=== PATIENT | male | born 1970 | race African-American/Black ===

== ENCOUNTER 2018-10-26 06:51 | Inpatient (IN) | payer BC ==
[~2018-10-26] VITALS: Ht 182.9 cm; Wt 86.2 kg
[2018-10-26] MEDS ORDERED: NITROGLYCERIN SUBLINGUAL 0.4 MG BOTTLE OF 25. SL ONE (07:07)
[2018-10-26] MEDS: NITROGLYCERIN SUBLINGUAL 0.4 MG BOTTLE OF 25. SL PRN ×3 (07:09→07:26)
--- NOTE | 2018-10-26 07:16 | PHYS DOC ---
Past Medical History Past Medical History: CAD, High Cholesterol, Hypertension Smoking: Cigarettes, Less than 1pk/day Adult General Chief Complaint Chief Complaint: chest pain HPI HPI Patient is a 48 year old 48 who brought in by EMS because of chest pain. Patien t states he just got to the work and getting started to clock in and felt pain in the substernal area as a belching feeling with diaphoresis and nausea. Patient denies dizziness, palpitation, shortness of breath, focal neuro deficit, fever and chills, urinary symptom. Patient rated his pain 7/10 and denies any change of pain since it was started. Patient treated with 324 mg of aspirin by EMS without improvement of the pain. Patient had history of stent placement 2 in 2003 but states this pain was different at that time. Patient seen by his fishing vessel operator about 5 months ago. Review of Systems Review of Systems Constitutional: Denies fever or chills [] Eyes: Denies change in visual acuity, redness, or eye pain [] HENT: Denies nasal congestion or sore throat [] Respiratory: Denies cough or shortness of breath [] Cardiovascular: No additional information not addressed in HPI [] GI: Denies abdominal pain, vomiting, bloody stools or diarrhea, reports nausea and [] : Denies dysuria or hematuria [] Musculoskeletal: Denies back pain or joint pain [] Integument: Denies rash or skin lesions [] Neurologic: Denies headache, focal weakness or sensory changes [] Endocrine: Denies polyuria or polydipsia [] All other systems were reviewed and found to be within normal limits, except as documented in this note. Current Medications Current Medications Current Medications Medications (Trade) Dose Ordered Sig/Stefanie Start Time Stop Time Status Last Admin Dose Admin Ketorolac Tromethamine (Toradol 30mg Vial) 30 mg 1X ONCE 10/26/18 08:45 10/26/18 08:46 10/26/18 08:31 30 MG Metoclopramide HCl (Reglan Vial) 10 mg 1X ONCE 10/26/18 08:45 10/26/18 08:46 10/26/18 08:30 10 MG Morphine Sulfate (Morphine Sulfate) 4 mg 1X ONCE 10/26/18 08:00 10/26/18 08:01 DC 10/26/18 07:41 4 MG Multi-Ingredient Mouthwash/Gargle (Gi Cocktail) 20 ml 1X ONCE 10/26/18 08:15 10/26/18 08:16 DC 10/26/18 08:05 20 ML Nitroglycerin (Nitrostat) 0.4 mg STK-MED ONCE 10/26/18 07:07 10/26/18 07:08 DC Ondansetron HCl (Zofran) 4 mg 1X ONCE 10/26/18 07:30 10/26/18 07:31 DC 10/26/18 07:27 4 MG Allergies Allergies Allergies Coded Allergies Type Severity Reaction Last Updated Verified No Known Drug Allergies 10/26/18 No Physical Exam Physical Exam Constitutional: Well developed, well nourished, mild distress, non-toxic ap pearance. [] HENT: Normocephalic, atraumatic, oropharynx moist. Eyes: PERRLA, EOMI, conjunctiva normal, no discharge. [] Neck: Normal range of motion, no tenderness, supple, no stridor. [] Cardiovascular: Bradycardia, no murmur [] Lungs & Thorax: Bilateral breath sounds clear to auscultation [] Abdomen: Bowel sounds normal, soft, no tenderness, no masses, no pulsatile masses. [] Skin: Warm, dry, no erythema, no rash. [] Back: No tenderness, no CVA tenderness. [] Extremities: No tenderness, no cyanosis, no clubbing, ROM intact, no edema. [] Neurologic: Alert and oriented X 3, normal motor function, normal sensory function, no focal deficits noted. [] Psychologic: Affect normal, judgement normal, mood normal. [] Current Patient Data Vital Signs Vital Signs Date Time Temp Pulse Resp B/P (MAP) Pulse Ox O2 Delivery O2 Flow Rate FiO2 10/26/18 08:01 54 18 180/92 (121) 98 10/26/18 07:10 97.9 97.9 Lab Values Laboratory Tests Test 10/26/18 07:00 White Blood Count 10.7 x10^3/uL (4.0-11.0) Red Blood Count 5.00 x10^6/uL (4.30-5.70) Hemoglobin 14.9 g/dL (13.0-17.5) Hematocrit 43.4 % (39.0-53.0) Mean Corpuscular Volume 87 fL (79-100) Mean Corpuscular Hemoglobin 30 pg (25-35) Mean Corpuscular Hemoglobin Concent 34 g/dL (31-37) Red Cell Distribution Width 14.1 % (11.5-14.5) Platelet Count 243 x10^3/uL (140-400) Neutrophils (%) (Auto) 79 % (31-73) H Lymphocytes (%) (Auto) 11 % (24-48) L Monocytes (%) (Auto) 8 % (0-9) Eosinophils (%) (Auto) 1 % (0-3) Basophils (%) (Auto) 1 % (0-3) Neutrophils # (Auto) 8.4 x10^3uL (1.8-7.7) H Lymphocytes # (Auto) 1.1 x10^3/uL (1.0-4.8) Monocytes # (Auto) 0.9 x10^3/uL (0.0-1.1) Eosinophils # (Auto) 0.1 x10^3/uL (0.0-0.7) Basophils # (Auto) 0.1 x10^3/uL (0.0-0.2) Sodium Level 141 mmol/L (136-145) Potassium Level 3.9 mmol/L (3.5-5.1) Chloride Level 104 mmol/L (98-107) Carbon Dioxide Level 25 mmol/L (21-32) Anion Gap 12 (6-14) Blood Urea Nitrogen 10 mg/dL (8-26) Creatinine 1.2 mg/dL (0.7-1.3) Estimated GFR (Cockcroft-Gault) 77.5 BUN/Creatinine Ratio 8 (6-20) Glucose Level 152 mg/dL (70-99) H Calcium Level 9.3 mg/dL (8.5-10.1) Magnesium Level 1.7 mg/dL (1.8-2.4) L Total Bilirubin 0.2 mg/dL (0.2-1.0) Aspartate Amino Transferase (AST) 29 U/L (15-37) Alanine Aminotransferase (ALT) 44 U/L (16-63) Alkaline Phosphatase 107 U/L (46-116) Creatine Kinase 95 U/L (39-308) Troponin I Quantitative < 0.017 ng/mL (0.000-0.055) GA-Zrl-H-Type Natriuretic Peptide 41 pg/mL (0-124) Total Protein 7.3 g/dL (6.4-8.2) Albumin 3.9 g/dL (3.4-5.0) Albumin/Globulin Ratio 1.1 (1.0-1.7) Lipase 101 U/L (73-393) Laboratory Tests 10/26/18 07:00 Laboratory Tests 10/26/18 07:00 EKG EKG EKG interpreted by me. EKG at 0709 showed sinus bradycardia at rate of 52, LVH with repolarization abnormalities, Q wave in anteroseptal leads, no acute ST-T wave abnormalities. Radiology/Procedures Radiology/Procedures [facility] [address] [place], [place] [id number] IMAGING REPORT Signed PATIENT: AVRIL SEQUEIRA ACCOUNT: [id number] : 1970 LOCATION: ER AGE: 48 SEX: M EXAM STATUS: REG ER ORD. PHYSICIAN: PARKER PEDRO MD REASON: chest pain PROCEDURE: PORTABLE CHEST 1V EXAM: CHEST 1 VIEW. HISTORY: Chest pain. COMPARISON: None. FINDINGS: A frontal view of the chest is obtained. There are no confluent infiltrates. There is no pneumothorax or pleural effusion. The heart is not enlarged. IMPRESSION: 1. No confluent infiltrates. Electronically signed by: Arjun Barrera MD (10/26/2018 8:04 AM) [facility] DICTATED and SIGNED BY: SIVA BARRERA MD DATE: 10/26/18803 Course & Med Decision Making Course & Med Decision Making Pertinent Labs and Imaging studies reviewed. (See chart for details) Evaluation of patient in ER showed 48-year-old male patient with heart score of 5 breath in by EMS because of chest pain and diaphoresis. Patient had blood pressure of more than 200 at arrival to ER and treated with nitroglycerin 3 without change of his pain but improvement of blood pressure gradually to 180/92. Pain. Cardiac enzyme was unremarkable. Because of multiple cardiac risk factors and nature of the pain plan to admit patient for more evaluation. Patient requiring admission for further evaluation and treatment. Discussed with Dr. Lee who is in agreement with admission. Discussed findings and plan with patient and family, who acknowledge understanding and agreement. Dragon Disclaimer Dragon Disclaimer This electronic medical record was generated, in whole or in part, using a voice recognition dictation system. Departure Departure Impression: Primary Impression: Acute chest pain Additional Impressions: Hypertensive urgency Tobacco abuse Tobacco abuse counseling CAD (coronary artery disease) Sinus bradycardia Nausea Disposition: ADMITTED INPATIENT (at 0818) Admitting Physician: FELI (Dr. Lee accepted admission at 0817) Condition: IMPROVED The HEART Score for CP Pts HEART Score for Chest Pain: HEART Score for Chest Pain Response (Comments) Value History Moderately Suspicious 1 ECG Nonspecific Repolarizatio 1 Age >45 - < 65 1 Risk Factors >3 Risk Factors or Hx CAD 2 Troponin < Normal Limit 0 Total 5 Risk Factors: Risk Factors: DM, Current or recent (<one month) smoker, HTN, HLP, family history of CAD, obesity. Risk Scores: Score 0 - 3: 2.5% MACE over next 6 weeks - Discharge Home Score 4 - 6: 20.3% MACE over next 6 weeks - Admit for Clinical Observation Score 7 - 10: 72.7% MACE over next 6 weeks - Early Invasive Strategies Problem Qualifiers Additional Impressions: CAD (coronary artery disease) Coronary Disease-Associated Artery/Lesion type: unspecified vessel or lesion type [place] vs. transplanted heart: unspecified whether [place] or transplanted heart Associated angina: angina presence unspecified Qualified Codes: I25.10 - Atherosclerotic heart disease of [place] coronary artery without angina pectoris PARKER PEDRO MD Oct 26, 2018 07:15
[2018-10-26 07:22] LABS: BASO # 0.1 x10^3/uL (0.0-0.2); BASO % 1 % (0-3); EOS # 0.1 x10^3/uL (0.0-0.7); EOS % 1 % (0-3); HEMATOCRIT 43.4 % (39.0-53.0); HEMOGLOBIN 14.9 g/dL (13.0-17.5); LYMPH # 1.1 x10^3/uL (1.0-4.8); LYMPH % 11 % (24-48); MEAN CORPUSCULAR HEMOGLOBIN 30 pg (25-35); MEAN CORPUSCULAR HGB CONC 34 g/dL (31-37); MEAN CORPUSCULAR VOLUME 87 fL (79-100); MONO # 0.9 x10^3/uL (0.0-1.1); MONO % 8 % (0-9); NEUT # 8.4 x10^3uL (1.8-7.7); NEUT % 79 % (31-73); PLATELET COUNT 243 x10^3/uL (140-400); RED CELL DISTRIBUTION WIDTH 14.1 % (11.5-14.5); WHITE BLOOD COUNT 10.7 x10^3/uL (4.0-11.0)
[2018-10-26] MEDS ORDERED: ONDANSETRON PF 4 MG/2 ML VIAL. IV ONE (07:30)
[2018-10-26 07:31] LABS: CALCIUM 9.3 mg/dL (8.5-10.1); CREATININE 1.2 mg/dL (0.7-1.3); GFR 77.5; POTASSIUM 3.9 mmol/L (3.5-5.1)
[2018-10-26 07:37] LABS: ALBUMIN 3.9 g/dL (3.4-5.0); ALBUMIN/GLOBULIN RATIO 1.1 (1.0-1.7); MAGNESIUM 1.7 mg/dL (1.8-2.4); TOTAL BILIRUBIN 0.2 mg/dL (0.2-1.0); TOTAL PROTEIN 7.3 g/dL (6.4-8.2)
[2018-10-26] MEDS ORDERED: MORPHINE SULFATE 4 MG/ML VIAL. IV ONE (08:00)
--- NOTE | 2018-10-26 08:07 | RAD ---
EXAM: CHEST 1 VIEW. HISTORY: Chest pain. COMPARISON: None. FINDINGS: A frontal view of the chest is obtained. There are no confluent infiltrates. There is no pneumothorax or pleural effusion. The heart is not enlarged. IMPRESSION: 1. No confluent infiltrates. Electronically signed by: Arjun Barrera MD (10/26/2018 8:04 AM) [facility]
[2018-10-26] MEDS ORDERED: LIDO:MAALOX 1:1 20 ML SINGLE DOSE. SWSW ONE (08:15)
[2018-10-26] MEDS ORDERED: KETOROLAC 30 MG/ML VIAL. IV ONE (08:45)
[2018-10-26] MEDS ORDERED: METOCLOPRAMIDE HCL 10 MG/2 ML VIAL. IV ONE (08:45)
[2018-10-26 09:30] VITALS: BP 156/83
[2018-10-26 11:00] VITALS: BP 161/87
[2018-10-26] MEDS ORDERED: HEPARIN for IV BOLUS 10,000 UNIT/10 ML VIAL. IV PRN (12:30)
[2018-10-26] MEDS ORDERED: HEPARIN 25,000UTS/500ML PREMIX 500 ML IV PRN (12:30)
--- NOTE | 2018-10-26 12:40 | PDOC2 ---
CONSULT Date of Consult Date of Consult DATE: 10/26/18 TIME: 12:36 Reason for Consult Reason for Consult: Chest pain, CAD Referring Physician Referring Physician: Dr. Lee Identification/Chief Complaint Chief Complaint Chest pain Source Source: Chart review, Patient History of Present Illness Reason for Visit: The patient is a 48-year-old male who developed chest pain and was brought to the emergency room. The pain was rated 7 out of 10 and was relatively severe initially but then resolved. Initial EKG showed no acute ischemic changes. Initial troponin was normal. Patient has a history of coronary artery disease with reported stent placement greater than 10 years ago. He also has a history of hypertension and hyperlipidemia as well as one pack per day smoking. He is now resting comfortably in bed. Past Medical History Cardiovascular: CAD, HTN, Hyperlipidemia Pulmonary: Other (tobacco use) Past Surgical History Past Surgical History: Other (coronary stents.) Family History Family History: Heart Disease Social History <1 pack per day Current Problem List Problem List Problems Medical Problems: (1) Acute chest pain Status: Acute (2) CAD (coronary artery disease) Status: Acute (3) Hypertensive urgency Status: Acute (4) Nausea Status: Acute (5) Sinus bradycardia Status: Acute (6) Tobacco abuse Status: Acute (7) Tobacco abuse counseling Status: Acute Current Medications Current Medications Current Medications Nitroglycerin (Nitrostat) 0.4 mg PRN Q5MIN PRN SL CP RATING > 1/10 Last administered on 10/26/18at 07:26; Start 10/26/18 at 07:15; Stop 10/27/18 at 07:14 Nitroglycerin (Nitrostat) 0.4 mg STK-MED ONCE SL ; Start 10/26/18 at 07:07; Stop 10/26/18 at 07:08; Status DC Ondansetron HCl (Zofran) 4 mg 1X ONCE IV Last administered on 10/26/18at 07:27; Start 10/26/18 at 07:30; Stop 10/26/18 at 07:31; Status DC Morphine Sulfate (Morphine Sulfate) 4 mg 1X ONCE IV Last administered on 10/26/18at 07:41; Start 10/26/18 at 08:00; Stop 10/26/18 at 08:01; Status DC Multi-Ingredient Mouthwash/Gargle (Gi Cocktail) 20 ml 1X ONCE SWSW Last administered on 10/26/18at 08:05; Start 10/26/18 at 08:15; Stop 10/26/18 at 08:16; Status DC Ketorolac Tromethamine (Toradol 30mg Vial) 30 mg 1X ONCE IV Last administered on 10/26/18at 08:31; Start 10/26/18 at 08:45; Stop 10/26/18 at 08:46; Status DC Metoclopramide HCl (Reglan Vial) 10 mg 1X ONCE IV Last administered on 10/26/18at 08:30; Start 10/26/18 at 08:45; Stop 10/26/18 at 08:46; Status DC Heparin Sodium/ Dextrose 500 ml @ 0 mls/hr CONT PRN IV SEE I/O RECORD; Start 10/26/18 at 12:30 Heparin Sodium (Porcine) (Heparin Sodium) 2,150 unit PRN Q6HRS PRN IV FOR UFH LEVEL LESS THAN 0.2; Start 10/26/18 at 12:30 Allergies Allergies: Coded Allergies: No Known Drug Allergies (Unverified , 10/26/18) ROS Cardiovascular: yes Chest Pain Physical Exam General: No acute distress HEENT: Atraumatic Lungs: Clear to auscultation Heart: Regular rate Abdomen: Normal bowel sounds Vitals VITALS Vital Signs Date Time Temp Pulse Resp B/P (MAP) Pulse Ox O2 Delivery O2 Flow Rate FiO2 10/26/18 09:30 97.5 51 16 156/83 (107) 99 Room Air 97.5 Labs Labs Laboratory Tests Test 10/26/18 07:00 10/26/18 11:05 White Blood Count 10.7 x10^3/uL (4.0-11.0) Red Blood Count 5.00 x10^6/uL (4.30-5.70) Hemoglobin 14.9 g/dL (13.0-17.5) Hematocrit 43.4 % (39.0-53.0) Mean Corpuscular Volume 87 fL (79-100) Mean Corpuscular Hemoglobin 30 pg (25-35) Mean Corpuscular Hemoglobin Concent 34 g/dL (31-37) Red Cell Distribution Width 14.1 % (11.5-14.5) Platelet Count 243 x10^3/uL (140-400) Neutrophils (%) (Auto) 79 % (31-73) Lymphocytes (%) (Auto) 11 % (24-48) Monocytes (%) (Auto) 8 % (0-9) Eosinophils (%) (Auto) 1 % (0-3) Basophils (%) (Auto) 1 % (0-3) Neutrophils # (Auto) 8.4 x10^3uL (1.8-7.7) Lymphocytes # (Auto) 1.1 x10^3/uL (1.0-4.8) Monocytes # (Auto) 0.9 x10^3/uL (0.0-1.1) Eosinophils # (Auto) 0.1 x10^3/uL (0.0-0.7) Basophils # (Auto) 0.1 x10^3/uL (0.0-0.2) Sodium Level 141 mmol/L (136-145) Potassium Level 3.9 mmol/L (3.5-5.1) Chloride Level 104 mmol/L (98-107) Carbon Dioxide Level 25 mmol/L (21-32) Anion Gap 12 (6-14) Blood Urea Nitrogen 10 mg/dL (8-26) Creatinine 1.2 mg/dL (0.7-1.3) Estimated GFR (Cockcroft-Gault) 77.5 BUN/Creatinine Ratio 8 (6-20) Glucose Level 152 mg/dL (70-99) Calcium Level 9.3 mg/dL (8.5-10.1) Magnesium Level 1.7 mg/dL (1.8-2.4) Total Bilirubin 0.2 mg/dL (0.2-1.0) Aspartate Amino Transf (AST/SGOT) 29 U/L (15-37) Alanine Aminotransferase (ALT/SGPT) 44 U/L (16-63) Alkaline Phosphatase 107 U/L (46-116) Creatine Kinase 95 U/L (39-308) Troponin I Quantitative < 0.017 ng/mL (0.000-0.055) 0.378 ng/mL (0.000-0.055) VE-Sbr-P-Type Natriuretic Peptide 41 pg/mL (0-124) Total Protein 7.3 g/dL (6.4-8.2) Albumin 3.9 g/dL (3.4-5.0) Albumin/Globulin Ratio 1.1 (1.0-1.7) Lipase 101 U/L (73-393) Laboratory Tests Test 10/26/18 07:00 10/26/18 11:05 White Blood Count 10.7 x10^3/uL (4.0-11.0) Red Blood Count 5.00 x10^6/uL (4.30-5.70) Hemoglobin 14.9 g/dL (13.0-17.5) Hematocrit 43.4 % (39.0-53.0) Mean Corpuscular Volume 87 fL (79-100) Mean Corpuscular Hemoglobin 30 pg (25-35) Mean Corpuscular Hemoglobin Concent 34 g/dL (31-37) Red Cell Distribution Width 14.1 % (11.5-14.5) Platelet Count 243 x10^3/uL (140-400) Neutrophils (%) (Auto) 79 % (31-73) Lymphocytes (%) (Auto) 11 % (24-48) Monocytes (%) (Auto) 8 % (0-9) Eosinophils (%) (Auto) 1 % (0-3) Basophils (%) (Auto) 1 % (0-3) Neutrophils # (Auto) 8.4 x10^3uL (1.8-7.7) Lymphocytes # (Auto) 1.1 x10^3/uL (1.0-4.8) Monocytes # (Auto) 0.9 x10^3/uL (0.0-1.1) Eosinophils # (Auto) 0.1 x10^3/uL (0.0-0.7) Basophils # (Auto) 0.1 x10^3/uL (0.0-0.2) Sodium Level 141 mmol/L (136-145) Potassium Level 3.9 mmol/L (3.5-5.1) Chloride Level 104 mmol/L (98-107) Carbon Dioxide Level 25 mmol/L (21-32) Anion Gap 12 (6-14) Blood Urea Nitrogen 10 mg/dL (8-26) Creatinine 1.2 mg/dL (0.7-1.3) Estimated GFR (Cockcroft-Gault) 77.5 BUN/Creatinine Ratio 8 (6-20) Glucose Level 152 mg/dL (70-99) Calcium Level 9.3 mg/dL (8.5-10.1) Magnesium Level 1.7 mg/dL (1.8-2.4) Total Bilirubin 0.2 mg/dL (0.2-1.0) Aspartate Amino Transf (AST/SGOT) 29 U/L (15-37) Alanine Aminotransferase (ALT/SGPT) 44 U/L (16-63) Alkaline Phosphatase 107 U/L (46-116) Creatine Kinase 95 U/L (39-308) Troponin I Quantitative < 0.017 ng/mL (0.000-0.055) 0.378 ng/mL (0.000-0.055) FR-Zwq-Q-Type Natriuretic Peptide 41 pg/mL (0-124) Total Protein 7.3 g/dL (6.4-8.2) Albumin 3.9 g/dL (3.4-5.0) Albumin/Globulin Ratio 1.1 (1.0-1.7) Lipase 101 U/L (73-393) Images Images Chest x-ray shows no acute changes. Assessment/Plan Assessment/Plan 1. Chest pain. Pain has resolved. EKG has no acute ischemic changes. Initial troponin is normal. We'll continue medical treatment. We'll rule out myocardial infarction. Obtain old records. Check an echocardiogram in the morning. 2. Hypertension. Reasonable control at this time although elevated initially. We'll adjust medications as needed. 3. Hyperlipidemia. We'll check a lipid panel. 4. Tobacco abuse. Discussed with the patient. Thank you for allowing us to participate in the care of your patient. YUMIOK SALEH MD Oct 26, 2018 12:40
[2018-10-26] MEDS ORDERED: ASPIRIN ENTERIC COATED 325 MG TABLET.DR. PO SCH (13:00)
[2018-10-26 14:55] LABS: HEMOGLOBIN 14.4 g/dL (13.0-17.5); RED BLOOD COUNT 4.87 x10^6/uL (4.30-5.70); RED CELL DISTRIBUTION WIDTH 14.2 % (11.5-14.5); WHITE BLOOD COUNT 11.9 x10^3/uL (4.0-11.0)
[2018-10-26 15:00] VITALS: BP 166/97
--- NOTE | 2018-10-26 18:57 | HP ---
ADMIT DATE: 10/26/2018 CHIEF COMPLAINT: Chest pain. HISTORY OF PRESENT ILLNESS: The patient is a pleasant 48-year-old male who has known coronary artery disease. He has 2 previous coronary stents, presents today with chest pain rated at 9/10. He has associated nausea. His troponin is negative. His EKG was okay, but his symptoms are awfully suspicious. We did recheck another troponin, now it is up a little bit at 0.02. I discussed the case with ER physician. We are going to admit the patient and put him on heparin drip, consult Cardiology. PAST MEDICAL HISTORY: CAD with previous stents, hyperlipidemia, hypertension, tobacco abuse. ALLERGIES: None. FAMILY HISTORY: Coronary artery disease. SOCIAL HISTORY: He does not drink or take drugs. He smokes. He drives a forklift. MEDICATIONS: Reviewed, please refer to the MRAD. REVIEW OF SYSTEMS: GENERAL: No history of weight change, weakness or fevers. SKIN: No bruising, hair changes or rashes. EYES: No blurred, double or loss of vision. NOSE AND THROAT: No history of nosebleeds, hoarseness or sore throat. HEART: He complains of chest pain. LUNGS: Denies cough, hemoptysis, wheezing or shortness of breath. GASTROINTESTINAL: Denies changes in appetite, nausea, vomiting, diarrhea or constipation. GENITOURINARY: No history of frequency, urgency, hesitancy or nocturia. NEUROLOGIC: Denies history of numbness, tingling, tremor or weakness. PSYCHIATRIC: No history of panic, anxiety or depression. ENDOCRINE: No history of heat or cold intolerance, polyuria or polydipsia. EXTREMITIES: Denies muscle weakness, joint pain, pain on walking or stiffness. PHYSICAL EXAMINATION: VITAL SIGNS: Temperature afebrile, pulse 98, respirations 18, blood pressure 144/90. GENERAL: He is sleeping. He awakens. HEART: Normal S1, S2. LUNGS: Clear. ABDOMEN: Soft. EXTREMITIES: Trace edema. SKIN: No rashes. ENDOCRINE: No thyromegaly. LYMPHATICS: No cervical nodes. HEMATOPOIETIC: No bruising. PSYCHIATRIC: He is stable. LABORATORY DATA: Troponin is slightly high at 0.02. EKG shows sinus rhythm. ASSESSMENT AND PLAN: Chest pain, elevated troponin in a middle-aged male who has known coronary artery disease. We placed him on a heparin drip. We consulted Cardiology, serial enzymes, serial EKGs, cardiac monitoring, home meds, daily aspirin. Suspect he may need to go for catheterization. We will await Cardiology input. GINGER GEE DO DR: DIDIER/akil JOB#: [id number] / [id number]
[2018-10-26 19:50] VITALS: BP 164/106
[2018-10-26] MEDS ORDERED: MORPHINE SULFATE 2 MG/ML VIAL. IV PRN (20:30)
--- NOTE | 2018-10-26 20:40 | NUR ---
While speaking to patient after shift change, pt stated that he was irritated with his stay saying that it seemed as if everything the hospital was doing only made him feel worse. RN attempted to explain why the pt was given a GI cocktail in ED before his troponin was elevated and why he then became a cardiac patient and was put on a heparin gtt. Pt said that he wasn't having chest pain anymore until he was hooked up to his IV heparin and that he felt congested and just needed to burp. RN explained the need for the heparin and offered a carbonated beverage to see if that would help him burp. Pt asked POWER BUILDER DEVELOPER while she was checking his vitals if he could have something for pain. Dr. Lee was paged and order for 2mg morphine obtained. Before morphine was given, pt called out at 2034 and stated that his made him an appointment with his own harpooner for 799 and that he needed to "check out". RN went to room and attempted to dissuade pt from leaving and the risks involved with a troponin of 1.898, a therapeutic UFH and history of CAD with stent placement, but was unsuccessful. Pt stated that he was "okay with being monitored, but not having all of these experimental drugs pumped into" him. Nursing asbestos pipe supervisor was notified and came to speak to the patient with the same results. Dr. Lee and Dr. Linder paged.
--- NOTE | 2018-10-26 21:20 | NUR ---
Dr. Lee and Dr. Linder both returned pages and agreed to have pt sign out AMA. Pt stated that his was on the way to pick him up and reiterated that he had an appointment in the morning with his own photoengraving proofer apprentice at though the patient could not remember his photoengraving proofer apprentice's name. Pt had already removed his tele monitor and was dressed except for the arm that his IV was in. Heparin was stopped and IV taken out, pressure held for 5 min and pressure dressing applied to IV site. Pt's AMA paperwork was signed by pt and witnessed by RN. Pt is currently pacing in his room while waiting for his to get to the unit.
--- NOTE | 2018-10-26 21:40 | NUR ---
Pt's at bedside at 2126, RN again explained to pt and spouse about the risks and dangers of leaving AMA and stated that if pt exhibited any signs or symptoms associated with an SC, not to wait for his appt in the morning but to go to a hospital immediately. Pt's agreed at pt was escorted to his car in ED parking lot.
--- NOTE | 2018-10-27 08:11 | EKG ---
[facility] [address] [place] [id number] Test Date: 2018-10-26 Test Time: 07:09:16 Pat Name: AVRIL SEQUEIRA Department: Room: Gender: M Public Health Assistant: : 1970 Requested By: PARKER PEDRO Order Number: [id number] Reading MD: Measurements Intervals [place] Rate: 52 P: -22 WV: 154 QRS: 41 QRSD: 82 T: 86 QT: 460 QTc: 430 Interpretive Statements SINUS RHYTHM LVH WITH REPOLARIZATION ABNORMALITY QRS(T) CONTOUR ABNORMALITY CONSIDER ANTEROSEPTAL MYOCARDIAL DAMAGE ABNORMAL ECG RI6.01 No previous ECG available for comparison
== END 2018-10-26 21:30 | disposition left against medical advice (07) | DRG 305 ==
LOC: ER 06:51 → 2 NORTH 07:05 → ER 08:35
PROVIDERS: ADMIT Internal Medicine; ATTEND Internal Medicine
DX: I16.0 Hypertensive urgency (principal); R07.89 Other chest pain; I25.10 Atherosclerotic heart disease of native coronary artery without angina pectoris; I10 Essential (primary) hypertension; E78.5 Hyperlipidemia, unspecified; F17.200 Nicotine dependence, unspecified, uncomplicated; E78.00 Pure hypercholesterolemia, unspecified; Z82.49 Family history of ischemic heart disease and other diseases of the circulatory system; Z95.5 Presence of coronary angioplasty implant and graft
CPT/HCPCS: 36415; 71045; 80053; 82550; 83690; 83735; 83880; 84484; 85025; 85027; 85520; 93005; J1644; J1885; J2270; J2405; J2765